=== PATIENT | female | born 1985 | race Caucasian/White ===

== ENCOUNTER 2016-06-07 16:10 | Inpatient (IN) | payer OTHER ==
[~2016-06-07] VITALS: Ht 154.9 cm; Wt 69.9 kg
[~2016-06-07 16:10] MED LIST: CALC1TAB15 PO; DEXAMETHASONE SOD PHOS 4 MG/ML VIAL IVP ONE; DOCU-174 PO; EPHEDrine SULFATE 50 MG/ML VIAL IM ONE; IBUP-2070 PO; KETOROLAC TROMETHAMINE 60 MG/2 ML VIAL IM ONE; METH850P2 PO; ONDANSETRON HCL 4 MG/2 ML VIAL IVP ONE; OXYTOCIN 10 UNITS/ML VIAL IM ONE; PERCT PO; PREN1TAB80 PO
[2016-06-07 16:49] VITALS: BP 117/75
[2016-06-07] MEDS ORDERED: RINGERS SOLUTION,LACTATED 1,000 ML IV SCH ×2 (17:15)
[2016-06-07 18:21] LABS: GLUCOSE,POINT OF CARE 73 MG/DL (70-110)
[2016-06-07] MEDS ORDERED: DEXTROSE 5%-LACTATED RINGERS 1,000 ML IV SCH (19:30)
[2016-06-07] MEDS ORDERED: NIFEdipine 10 MG CAPSULE PO ONE (19:30)
[2016-06-07 19:58] LABS: BASOPHILS % (AUTO) 0.3 % (0.0-2.0); EOSINOPHILS % (AUTO) 0.3 % (1.0-6.0); HEMATOCRIT 32.8 % (36-46); HEMOGLOBIN 10.9 g/dL (12.0-16.0); LYMPHOCYTES # (AUTO) 1.7 K/uL (1.0-4.8); LYMPHOCYTES % (AUTO) 13.3 % (22.0-44.0); MEAN CORPUSCULAR HEMOGLOBIN 30.8 pg (26.0-34.0); MEAN CORPUSCULAR HGB CONC 33.1 G/dL (31.0-37.0); MEAN CORPUSCULAR VOLUME 93 fL (80-100); MONOCYTES # (AUTO) 0.7 K/uL (0.1-1.0); MONOCYTES % (AUTO) 5.4 % (2.0-9.0); NEUTROPHILS # (AUTO) 10.1 K/uL (1.8-7.7); NEUTROPHILS % (AUTO) 80.7 % (40.0-70.0); RED BLOOD CELL COUNT(AUTO) 3.53 MIL/uL (4.00-5.20); RED CELL DISTRIBUTION WIDTH 14.8 % (11.5-14.5); WHITE BLOOD COUNT (AUTO) 12.5 K/uL (4.5-11.0)
[2016-06-07] MEDS ORDERED: INFLUENZA VIRUS VACCINE QVS 2016-17 (3YR+)/PF 60 MCG/0.5 ML SYRINGE IM ONE (20:15)
[2016-06-07] MEDS ORDERED: CITRIC ACID/SODIUM CITRATE 30 ML SOLUTION UDCUP PO ONE (20:30)
[2016-06-07] MEDS ORDERED: METOCLOPRAMIDE HCL 5 MG/ML 2 ML VIAL IVP ONE (20:30)
[2016-06-07] MEDS ORDERED: MIDAZOLAM HCL 2 MG/2 ML VIAL ONE (20:38)
[2016-06-07] MEDS ORDERED: MORPHINE SULFATE/PF 0.5 MG/ML 10 ML AMP ONE (20:38)
[2016-06-07] MEDS ORDERED: FentaNYL CITRATE-PF 100 MCG/2 ML VIAL ONE (20:39)
[2016-06-07] MEDS ORDERED: RINGERS SOLUTION,LACTATED 1,000 ML IV ONE ×2 (20:54→23:36)
[2016-06-07] MEDS ORDERED: MORPHINE SULFATE 4 MG/ML SYRINGE IVP PRN (21:45)
[2016-06-07] MEDS ORDERED: MORPHINE SULFATE 2 MG/ML SYRINGE IVP PRN (21:45)
[2016-06-07] MEDS ORDERED: DiphenhydrAMINE HCL 50 MG/ML VIAL IVP PRN ×2 (21:45)
[2016-06-07] MEDS ORDERED: GUM MASTIC/STORAX/MSAL/ALCOHOL LIQUID 0.67 ML VIAL TP ONE (21:45)
[2016-06-07] MEDS ORDERED: FentaNYL CITRATE-PF 100 MCG/2 ML VIAL IVP PRN ×2 (21:45)
[2016-06-07] MEDS ORDERED: OXYGEN THERAPY IH SCH ×2 (21:45)
[2016-06-07] MEDS ORDERED: ONDANSETRON HCL 4 MG/2 ML VIAL IVP PRN ×2 (21:45)
[2016-06-07] MEDS ORDERED: OxyCODONE HCL/ACETAMINOPHEN 5-325 MG TABLET PO PRN ×2 (23:45)
[2016-06-07] MEDS ORDERED: LANOLIN 7 GM OINTMENT TP PRN (23:45)
[2016-06-07] MEDS: RINGERS SOLUTION,LACTATED 1,000 ML IV SCH (23:53)
[2016-06-08] MEDS: NALBUPHINE HCL 10 MG/ML VIAL IVP SCH ×3 (01:52→14:00)
[2016-06-08] MEDS: KETOROLAC TROMETHAMINE 30 MG/ML VIAL IVP SCH ×3 (04:24→15:50)
[2016-06-08 06:42] LABS: EOSINOPHILS % (AUTO) 0 % (1.0-6.0); HEMOGLOBIN 9.4 g/dL (12.0-16.0); LYMPHOCYTES # (AUTO) 1.1 K/uL (1.0-4.8); LYMPHOCYTES % (AUTO) 6.3 % (22.0-44.0); MEAN CORPUSCULAR HEMOGLOBIN 30.5 pg (26.0-34.0); MEAN CORPUSCULAR HGB CONC 32.6 G/dL (31.0-37.0); MEAN CORPUSCULAR VOLUME 94 fL (80-100); MONOCYTES # (AUTO) 0.6 K/uL (0.1-1.0); MONOCYTES % (AUTO) 3.1 % (2.0-9.0); NEUTROPHILS # (AUTO) 16.4 K/uL (1.8-7.7); RED BLOOD CELL COUNT(AUTO) 3.09 MIL/uL (4.00-5.20); RED CELL DISTRIBUTION WIDTH 14.5 % (11.5-14.5); WHITE BLOOD COUNT (AUTO) 18.2 K/uL (4.5-11.0)
[2016-06-08 06:43] LABS: NEUTROPHILS % (AUTO) 90.6 % (40.0-70.0)
[2016-06-08] MEDS: RINGERS SOLUTION,LACTATED 1,000 ML IV SCH (07:45)
[2016-06-08] MEDS: MAGNESIUM HYDROXIDE SUSPENSION 30 ML UDCUP PO SCH (09:00)
[2016-06-08] MEDS: IBUPROFEN 800 MG TABLET PO SCH (20:48)
[2016-06-08] MEDS ORDERED: IBUPROFEN 800 MG TABLET PO PRN (23:45)
[2016-06-09] MEDS: IBUPROFEN 800 MG TABLET PO SCH ×4 (02:31→20:12)
[2016-06-09] MEDS: MAGNESIUM HYDROXIDE SUSPENSION 30 ML UDCUP PO SCH ×2 (08:28→21:14)
[2016-06-10] MEDS: IBUPROFEN 800 MG TABLET PO SCH ×2 (01:33→08:04)
[2016-06-10] MEDS: MAGNESIUM HYDROXIDE SUSPENSION 30 ML UDCUP PO SCH (09:00)
[2016-06-10] MEDS ORDERED: IBUP-2070 PO (13:09)
[2016-06-10] MEDS ORDERED: DSS100 PO (13:10)
[2016-06-10] MEDS ORDERED: FERR-89 PO (13:10)
== END 2016-06-10 13:30 | disposition home or self-care (01) | DRG 766 ==
LOC: OBSVTOIN 16:10 → 4S 16:10
PROVIDERS: ADMIT Obstetrics & Gynecology; ATTEND Obstetrics & Gynecology
PROC: 10D00Z1 Extraction of Products of Conception, Low, Open Approach (ICD-10-PCS; principal; 2016-06-07)
PROC: 0UB70ZZ Excision of Bilateral Fallopian Tubes, Open Approach (ICD-10-PCS; 2016-06-07)
PROC: 3E0234Z Introduction of Serum, Toxoid and Vaccine into Muscle, Percutaneous Approach (ICD-10-PCS; 2016-06-08)
DX: O76 Abnormality in fetal heart rate and rhythm complicating labor and delivery (principal); O34.211 Maternal care for low transverse scar from previous cesarean delivery; D64.9 Anemia, unspecified; O99.02 Anemia complicating childbirth; N85.8 Other specified noninflammatory disorders of uterus; Z3A.38 38 weeks gestation of pregnancy; Z37.0 Single live birth; Z30.2 Encounter for sterilization; Z23 Encounter for immunization
CPT/HCPCS: 82962; 86850; 86900; 86901; 87081; 88302; 90471; J0690; J1100; J1885; J2250; J2274; J2300; J2405; J2590; J2765; J3010; J3490; J7120